=== PATIENT | female | born 1950 | race Caucasian/White ===

== ENCOUNTER 2024-10-27 08:15 | Day surgery (SDC) | payer MEDICARE, OTHER ==
[~2024-10-27] VITALS: Ht 167.6 cm; Wt 55.0 kg
[2024-10-27] VITALS (15 sets, daily range): BP systolic 130–161; BP diastolic 64–78; PULSE 64–87; RESP 9–17; TEMP 98.2; O2SAT 92–99
[2024-10-27] MEDS: ceFAZolin 2gm in dextrose, iso 50 ML IV ONE (05:30)
[2024-10-27] MEDS: tranexamic acid 1gm/0.7% sal. 100 ML IV ONE (05:30)
[~2024-10-27 08:15] MED LIST: BUPR-297 PO; CARB1TAB34 PO; CITA40TA16 PO; GABA-530 PO; LEVO50TA PO; MONT-40 PO; OLME5TAB32 PO
[2024-10-27 09:14] LABS: BASOPHILS % (AUTO) 0.3 % (0-1); EOSINOPHILS # (AUTO) 0.5 X10'3 (0-0.9); LYMPHOCYTES % (AUTO) 12.4 % (21-51); MEAN CORPUSCULAR HEMOGLOBIN 33.8 PG (27.0-31.0); MEAN CORPUSCULAR HGB CONC 33.9 g/dL (33.0-36.5); MEAN CORPUSCULAR VOLUME 99.7 FL (78-98); MEAN PLATELET VOLUME 7.2 FL (7.4-10.4); MONOCYTES # (AUTO) 0.7 X10'3 (0-0.9); MONOCYTES % (AUTO) 9.1 % (2-12); NEUTROPHILS # (AUTO) 5.7 X10'3 (1.8-7.7); NEUTROPHILS % (AUTO) 72.2 % (42-75); PRE OP HEMATOCRIT 38.4 % (35.0-45.0); PRE OP PLATELET COUNT 252 X10'3 (140-440); PRE OP WHITE BLOOD COUNT 7.9 10'3 (4.8-10.8); RED BLOOD COUNT 3.85 X10'6 (4.20-5.60); RED CELL DISTRIBUTION WIDTH 14.5 % (11.5-14.5)
[2024-10-27 09:24] LABS: INR 1.1 INR; PROTHROMBIN TIME 11.1 SECONDS (9.0-12.0)
[2024-10-27] MEDS: ringers solution, lacted 1,000 ML IV SCH (09:27)
[2024-10-27] MEDS: famotidine 20mg tablet PO ONE (09:27)
[2024-10-27] MEDS ORDERED: BUPIVAcaine 2.5mg/ml inj 50ml vial (contains preservative) ONE (09:54)
[2024-10-27] MEDS ORDERED: fentaNYL/PF 50MCG/1 ML 2ML syringe ONE ×2 (10:11→11:20)
[2024-10-27] MEDS ORDERED: sevoflurane 250ml liquid IH ONE (10:11)
[2024-10-27] MEDS ORDERED: propofol inj 20 ML IV ONE (10:12)
[2024-10-27] MEDS ORDERED: midazolam 1 mg/ML 2ml injection ONE (10:12)
[2024-10-27 10:28] LABS: PRE OP PARTIAL THROMB. TIME 40 SECONDS (22-32)
[2024-10-27 10:33] LABS: ALBUMIN 3.2 G/DL (3.4-5.0); ALBUMIN/GLOBULIN RATIO 0.8 (1.1-1.5); ALKALINE PHOSPHATASE 114 IU/L (46-116); BLOOD UREA NITROGEN 12 MG/DL (7-18); BUN/CREATININE RATIO 13.2 (10.0-20.0); CALCIUM 9.3 MG/DL (8.5-10.1); CHLORIDE 103 MMOL/L (99-107); CREATININE 0.91 MG/DL (0.40-0.90); PRE OP ALT 12 U/L (30-65); PRE OP ANION GAP 9 (8-16); PRE OP AST 18 U/L (10-37); PRE OP BILIRUB, TOTAL 0.4 MG/DL (0.0-1.0); PRE OP GLUCOSE 83 MG/DL (70-104); PRE OP POTASSIUM 4.7 MMOL/L (3.4-5.1); PRE OP SODIUM 133 MMOL/L (135-145); TOTAL CARBON DIOXIDE 21.3 MMOL/L (24-32); eCRCL 50 ML/MIN; eGFR 61 ML/MIN
[2024-10-27] MEDS ORDERED: dexamethasone sod phosphate 4mg/ml inj. ONE (10:52)
[2024-10-27] MEDS ORDERED: ondansetron/PF 4mg/2ml inj IV PRN (11:05)
[2024-10-27] MEDS ORDERED: ringers solution, lacted 1,000 ML IV SCH (11:05)
[2024-10-27] MEDS ORDERED: proCHLORperazine 10 MG/2 ml inj IV PRN (11:05)
[2024-10-27] MEDS ORDERED: morphine 2 MG/ML inj. syringe IV PRN (11:05)
[2024-10-27] MEDS ORDERED: meperidine/PF 25mg/ml syringe IV PRN ×2 (11:05)
[2024-10-27] MEDS ORDERED: morphine 4 MG/ML inj SYRINge IV PRN (11:05)
[2024-10-27] MEDS ORDERED: vancomycin 1,000mg inj ONE (11:38)
[2024-10-27] MEDS ORDERED: hydrALAZINE 20mg/ml inj. ONE ×3 (12:01→12:11)
[2024-10-27] MEDS ORDERED: acetaminophen 1,000mg/100ml IV 100 ML IV ONE (12:01)
[2024-10-27] MEDS ORDERED: ondansetron/PF 4mg/2ml inj ONE (12:06)
[2024-10-27] MEDS: HYDROcodone/acetaminophen 10/325mg tab PO STA (13:56)
[2024-10-27] MEDS: meperidine/PF 25mg/ml syringe IV PRN (14:02)
== END 2024-10-27 15:11 | disposition home or self-care (01) ==
LOC: PAS 08:15
PROVIDERS: ATTEND Specialist
DX: G56.02 Carpal tunnel syndrome, left upper limb (principal); G56.22 Lesion of ulnar nerve, left upper limb; I12.9 Hypertensive chronic kidney disease with stage 1 through stage 4 chronic kidney disease, or unspecified chronic kidney disease; N18.9 Chronic kidney disease, unspecified; E03.9 Hypothyroidism, unspecified; K21.9 Gastro-esophageal reflux disease without esophagitis; I25.2 Old myocardial infarction; F17.210 Nicotine dependence, cigarettes, uncomplicated; Z79.890 Hormone replacement therapy; Z79.899 Other long term (current) drug therapy; Z98.890 Other specified postprocedural states
CPT/HCPCS: 36415; 64718; 64721; 71045; 80053; 82948; 85025; 85610; 85730; A4565; A6449; A7000; J0131; J0360; J0690; J1100; J2175; J2250; J2405; J2704; J3010; J3370; J3490; J7030; J7120; Z7506; Z7508; Z7512; Z7610